=== PATIENT | female | born 1990 | race Caucasian/White ===

== ENCOUNTER 2018-12-26 22:59 | Emergency (ER) | payer OTHER, MEDICAID ==
[~2018-12-26] VITALS: Ht 154.9 cm; Wt 72.1 kg
[~2018-12-26 22:59] MED LIST: DOXYCYCLINE 10100 MG PO; IBUPROFEN 600600 M1 PO; LANOLIN56 GM; MIRALAX255 GM PO; MUCINEX D TABL1 EAC1 PO; NORCO 5-325 TA1 EACH PO; PRENATAL; TUCKS MEDICATE1 EAC1; VENTOLIN HFA INH8 GM IH; XANAX 0.25 MG0.25 MG PO
[2018-12-27 00:26] VITALS: BP 120/68
== END 2018-12-27 00:26 | disposition home or self-care (01) ==
LOC: M.ERS 22:59
DX: S93.601A Unspecified sprain of right foot, initial encounter (principal); F17.210 Nicotine dependence, cigarettes, uncomplicated; W18.39XA Other fall on same level, initial encounter; Y92.89 Other specified places as the place of occurrence of the external cause; Y93.89 Activity, other specified; Y99.8 Other external cause status